=== PATIENT | female | born 1975 | race Asian ===

== ENCOUNTER 2021-02-01 10:27 | Emergency (ER) | payer BC ==
[~2021-02-01] VITALS: Ht 162.6 cm; Wt 149.2 kg
[2021-02-01 11:26] LABS: PLATELET COUNT 284 K/uL (152-353)
[2021-02-01 11:41] LABS: POTASSIUM 3.2 mmol/L (3.6-5.2); SODIUM 136 mmol/L (136-145)
[2021-02-01 13:55] VITALS: BP 161/87; TEMP 98.7
== END 2021-02-01 13:55 | disposition home or self-care (01) ==
LOC: ED 10:27
PROVIDERS: Family Medicine
DX: I20.8 Other forms of angina pectoris (principal); E11.65 Type 2 diabetes mellitus with hyperglycemia
CPT/HCPCS: 36415; 80053; 81000; 82550; 82948; 84484; 85027; 93005; 96374; 99284; J1815

== ENCOUNTER 2021-04-18 23:13 | Emergency (ER) | payer BC ==
[~2021-04-18] VITALS: Ht 162.6 cm; Wt 158.8 kg
[2021-04-18 23:24] VITALS: TEMP 97.1
[2021-04-19 01:38] VITALS: BP 188/79
== END 2021-04-19 01:39 | disposition home or self-care (01) ==
LOC: ED 23:13
DX: N39.0 Urinary tract infection, site not specified (principal); I10 Essential (primary) hypertension
CPT/HCPCS: 81000; 87086; 87088; 96372; 99283; J0696